=== PATIENT | female | born 1960 | race Caucasian/White ===

== ENCOUNTER 2022-10-24 11:52 | Emergency (ER) | payer OTHER ==
[~2022-10-24] VITALS: Ht 165.1 cm; Wt 97.0 kg
[~2022-10-24 11:52] MED LIST: CEPHALEXIN500 MG OR; FLEXERIL OR; GABAPENTIN100 MG PO; LORTAB 5 OR; METHOCARBAMOL500 MG PO; METRONIDAZOLE250 MG PO; NAPROSYN500 MG OR; OMEPRAZOLE20 M2 PO; TIZANIDINE2 MG PO; TORADOL PO; TRAMADOL HCL50 MG PO
[2022-10-24 13:07] VITALS: BP 157/66
[2022-10-24 13:31] VITALS: BP 148/73
[2022-10-24 14:01] VITALS: BP 142/67
[2022-10-24 15:01] VITALS: BP 164/74
[2022-10-24 15:13] VITALS: BP 164/74
== END 2022-10-24 15:22 | disposition home or self-care (01) ==
LOC: ED 11:52
DX: M25.552 Pain in left hip (principal); E78.5 Hyperlipidemia, unspecified